=== PATIENT | male | born 1970 | race Asian ===

== ENCOUNTER 2022-10-06 07:21 | Inpatient (IN) | payer MEDICARE ==
[~2022-10-06] VITALS: Ht 182.9 cm; Wt 96.2 kg
[2022-10-06 07:59] LABS: COVID AG,FIA SOURCE NASOPHARYNGEAL
[2022-10-06 08:16] LABS: ANION GAP 7 mmol/L (8-16); CARBON DIOXIDE 26 mmol/L (22-29); CHLORIDE 102 mmol/L (98-107); CREATININE 0.79 mg/dL (0.60-1.30); GLOMERULAR FILTR. RATE CALC > 60 mL/min (>60); GLUCOSE,RANDOM 107 mg/dL (70-110); POTASSIUM 4.3 mmol/L (3.5-5.1); SODIUM SERUM 135 mmol/L (136-145); UREA NITROGEN, BLOOD 16 mg/dL (7-18)
[2022-10-06 08:17] LABS: BASOPHILS % (AUTO) 0.6 % (0.0-2.0); EOSINOPHILS % (AUTO) 1.4 % (1.0-6.0); HEMATOCRIT 48.6 % (41-53); HEMOGLOBIN 15.9 g/dL (13.5-17.5); LYMPHOCYTES # (AUTO) 1.6 K/uL (1.0-4.8); LYMPHOCYTES % (AUTO) 22.2 % (22.0-44.0); MEAN CORPUSCULAR HEMOGLOBIN 28.7 pg (26.0-34.0); MEAN CORPUSCULAR HGB CONC 32.6 G/dL (31.0-37.0); MEAN CORPUSCULAR VOLUME 88 fL (80-100); MONOCYTES # (AUTO) 0.5 K/uL (0.1-1.0); MONOCYTES % (AUTO) 7.4 % (2.0-9.0); NEUTROPHILS # (AUTO) 5.1 K/uL (1.8-7.7); NEUTROPHILS % (AUTO) 68.4 % (40.0-70.0); PLATELET COUNT (AUTO) 203 K/uL (150-450); RED BLOOD CELL COUNT(AUTO) 5.53 MIL/uL (4.50-5.90); RED CELL DISTRIBUTION WIDTH 14.5 % (11.5-14.5)
[2022-10-06 08:19] LABS: SALICYLATE 3.8 mg/dL (2.8-20.0)
[2022-10-06 08:21] LABS: ALANINE AMINOTRANSFERASE 33 U/L (12-78); ALBUMIN 3.7 g/dL (3.4-5.0); ALKALINE PHOSPHATASE 82 U/L (46-116); ASPARTATE AMINOTRANSFERASE 21 U/L (15-37); BILIRUBIN,TOTAL 0.3 mg/dL (0.1-1.0); TOTAL PROTEIN, SERUM 7.4 g/dL (6.4-8.2)
[2022-10-06 08:26] LABS: ACETAMINOPHEN < 2 mcg/mL (10-30)
[2022-10-06 09:13] LABS: AMPHET/METH SCREEN,URINE NEGATIVE (NEGATIVE); BARBITURATE SCREEN, URINE NEGATIVE (NEGATIVE); BENZODIAZEPINES SCREEN,URINE NEGATIVE (NEGATIVE); CANNABINOID SCREEN,URINE POSITIVE (NEGATIVE); COCAINE SCREEN,URINE NEGATIVE (NEGATIVE); METHADONE SCREEN, URINE NEGATIVE (NEGATIVE); OPIATE SCREEN,URINE NEGATIVE (NEGATIVE)
[2022-10-06 09:14] LABS: PHENCYCLIDINE SCREEN,URINE NEGATIVE (NEGATIVE)
[2022-10-06] MEDS ORDERED: LORazepam 2 MG TABLET PO PRN (10:00)
[2022-10-06] MEDS ORDERED: HALOPERIDOL 5 MG TABLET PO PRN (10:00)
[2022-10-06] MEDS ORDERED: ZOLPIDEM TARTRATE 10 MG TABLET PO PRN (10:00)
[2022-10-06 14:00] VITALS: BP 121/81
[2022-10-06 16:00] VITALS: BP 123/89
[2022-10-06] MEDS ORDERED: HALOPERIDOL LACTATE 5 MG/ML VIAL ONE (19:08)
[2022-10-06] MEDS ORDERED: LORazepam 2 MG/ML VIAL ONE (19:08)
[2022-10-06] MEDS ORDERED: DiphenhydrAMINE HCL 50 MG/ML VIAL ONE (19:08)
[2022-10-06] MEDS ORDERED: LORazepam 2 MG/ML VIAL IM ONE (19:15)
[2022-10-06] MEDS ORDERED: DiphenhydrAMINE HCL 50 MG/ML VIAL IM ONE (19:15)
[2022-10-06] MEDS ORDERED: HALOPERIDOL LACTATE 5 MG/ML VIAL IM ONE (19:15)
[2022-10-07] MEDS ORDERED: ACETAMINOPHEN 325 MG TABLET PO PRN (05:15)
[2022-10-07] MEDS ORDERED: ONDANSETRON HCL 4 MG TABLET PO PRN (05:15)
[2022-10-07] MEDS ORDERED: CloNIDine HCL 0.1 MG TABLET PO PRN (05:15)
[2022-10-07] MEDS ORDERED: ALBUTEROL SULFATE HFA 90 MCG/PUFF 8 GM INHALER IH PRN (05:15)
[2022-10-07] MEDS ORDERED: BACITRACIN 28 GM OINTMENT TP PRN (05:15)
[2022-10-07] MEDS ORDERED: LOPERAMIDE HCL 2 MG CAPSULE PO PRN (05:15)
[2022-10-07] MEDS ORDERED: DOCUSATE SODIUM 100 MG CAPSULE PO PRN (05:15)
[2022-10-07] MEDS ORDERED: BENZOCAINE/MENTHOL LOZENGE PO PRN (05:15)
[2022-10-07] MEDS ORDERED: MAGNESIUM HYDROXIDE SUSPENSION 30 ML UDCUP PO PRN (05:15)
[2022-10-07] MEDS ORDERED: IBUPROFEN 600 MG TABLET PO PRN (05:15)
[2022-10-07] MEDS ORDERED: MAG HYDROX/AL HYDROX/SIMETH ES 30 ML SUSPENSION UDCUP PO PRN (05:15)
[2022-10-07] MEDS ORDERED: OMEPRAZOLE 20 MG CAPSULE PO PRN (05:15)
[2022-10-07] MEDS ORDERED: PETROLATUM,WHITE 28 GM JELLY TP PRN (05:15)
[2022-10-07 08:00] VITALS: BP 95/55
[2022-10-07 09:27] VITALS: BP 105/60
[2022-10-07 16:26] VITALS: BP 110/75
[2022-10-08 08:19] VITALS: BP 105/67
[2022-10-08] MEDS: DIVALPROEX SODIUM 500 MG DR TABLET PO SCH ×2 (08:30→20:51)
[2022-10-08] MEDS: ClonazePAM 0.5 MG TABLET PO SCH ×2 (08:30→20:51)
[2022-10-08] MEDS: RisperiDONE 1 MG TABLET PO SCH ×2 (08:30→20:51)
[2022-10-08] MEDS: LITHIUM CARBONATE 300 MG CAPSULE PO SCH ×2 (08:30→20:51)
[2022-10-08 16:10] VITALS: BP 111/77
[2022-10-09] MEDS: RisperiDONE 1 MG TABLET PO SCH ×2 (08:03→20:54)
[2022-10-09] MEDS: DIVALPROEX SODIUM 500 MG DR TABLET PO SCH ×2 (08:03→20:53)
[2022-10-09] MEDS: LITHIUM CARBONATE 300 MG CAPSULE PO SCH ×2 (08:03→20:53)
[2022-10-09] MEDS: ClonazePAM 0.5 MG TABLET PO SCH ×2 (08:03→20:53)
[2022-10-09 08:09] VITALS: BP 104/59
[2022-10-09] MEDS: SPIRONOLACTONE 50 MG TABLET PO SCH ×3 (10:45→16:20)
[2022-10-09] MEDS: FINASTERIDE 5 MG TABLET PO SCH (11:33)
[2022-10-09 11:38] VITALS: BP 96/72
[2022-10-09 16:12] VITALS: BP 100/73
[2022-10-09 20:02] VITALS: BP 102/77
[2022-10-09] MEDS: PROGESTERONE, MICRONIZED 100 MG CAPSULE PO SCH (20:53)
[2022-10-10 08:51] VITALS: BP 103/69
[2022-10-10] MEDS: ClonazePAM 0.5 MG TABLET PO SCH ×2 (09:51→20:17)
[2022-10-10] MEDS: FINASTERIDE 5 MG TABLET PO SCH (09:51)
[2022-10-10] MEDS: DULoxetine HCL 60 MG CAPSULE PO SCH (09:51)
[2022-10-10] MEDS: DIVALPROEX SODIUM 500 MG DR TABLET PO SCH ×2 (09:51→20:18)
[2022-10-10] MEDS: RisperiDONE 1 MG TABLET PO SCH ×2 (09:52→20:18)
[2022-10-10] MEDS: SPIRONOLACTONE 50 MG TABLET PO SCH ×2 (09:52→17:22)
[2022-10-10] MEDS: LITHIUM CARBONATE 300 MG CAPSULE PO SCH ×2 (09:52→20:17)
[2022-10-10 16:42] VITALS: BP 96/57
[2022-10-10] MEDS: PROGESTERONE, MICRONIZED 100 MG CAPSULE PO SCH (20:17)
[2022-10-10] MEDS ORDERED: RISP1TAB98 PO (21:24)
[2022-10-10] MEDS ORDERED: LITH300C3 PO (21:24)
[2022-10-10] MEDS ORDERED: DIVA-112 PO (21:24)
[2022-10-11 07:38] LABS: LITHIUM 0.32 mmol/L (0.60-1.20)
[2022-10-11 08:32] VITALS: BP 98/65
[2022-10-11] MEDS ORDERED: FINA-27 PO (08:56)
[2022-10-11] MEDS ORDERED: SPIR50TA27 PO (08:56)
[2022-10-11] MEDS ORDERED: PROG100C24 PO (08:56)
[2022-10-11] MEDS ORDERED: [UNRECOGNIZED DRUG - CODE] IM (08:57)
[2022-10-11] MEDS: FINASTERIDE 5 MG TABLET PO SCH (09:09)
[2022-10-11] MEDS: SPIRONOLACTONE 50 MG TABLET PO SCH (09:09)
[2022-10-11] MEDS: RisperiDONE 1 MG TABLET PO SCH (09:11)
[2022-10-11] MEDS: DIVALPROEX SODIUM 500 MG DR TABLET PO SCH (09:12)
[2022-10-11] MEDS: LITHIUM CARBONATE 300 MG CAPSULE PO SCH (09:12)
[2022-10-11] MEDS: DULoxetine HCL 60 MG CAPSULE PO SCH (09:12)
[2022-10-11] MEDS: ClonazePAM 0.5 MG TABLET PO SCH (09:12)
[2022-10-13] MEDS ORDERED: ESTRADIOL CYPIONATE 5 MG/ML IM ONE (09:00)
== END 2022-10-11 09:20 | disposition home or self-care (01) | DRG 885 ==
LOC: EMS 07:23 → 3EX 13:02 → 3EC 20:00
PROVIDERS: ADMIT Psychiatry & Neurology Psychiatry; ATTEND Psychiatry & Neurology Psychiatry
DX: F31.9 Bipolar disorder, unspecified (principal); T50.902A Poisoning by unspecified drugs, medicaments and biological substances, intentional self-harm, initial encounter; Z20.822 Contact with and (suspected) exposure to COVID-19; F22 Delusional disorders; E55.9 Vitamin D deficiency, unspecified; F12.90 Cannabis use, unspecified, uncomplicated; F41.9 Anxiety disorder, unspecified; Z56.0 Unemployment, unspecified; Y92.89 Other specified places as the place of occurrence of the external cause; Z91.51 Personal history of suicidal behavior
CPT/HCPCS: 80053; 80164; 80178; 80307; 85025; 93005; 99285; G0480; G0481; J1200; J1630; J2060; Q9967